=== PATIENT | female | born 2000 ===

== ENCOUNTER 2022-07-30 01:02 | Inpatient (IN) | payer BC ==
[2022-07-30] MEDS ORDERED: Lidocaine 1% 50 ML MDV INJECT PRN (01:41)
[2022-07-30] MEDS ORDERED: Sodium Chloride 0.9% 10 ML Syringe FLUSH PRN (01:41)
[2022-07-30] MEDS ORDERED: Misoprostol 200 MCG Tab PO PRN (01:41)
[2022-07-30] MEDS ORDERED: Ondansetron 4 MG/2 ML SDV IVPUSH PRN (01:41)
[2022-07-30] MEDS ORDERED: Methylergonovine 0.2 MG/1 ML Amp IM PRN (01:41)
[2022-07-30] MEDS ORDERED: Carboprost Tromethamine 250 MCG/1 mL Vial IM PRN (01:41)
[2022-07-30] MEDS ORDERED: Butorphanol 1 MG/ML SDV IVPUSH PRN (01:41)
[2022-07-30] MEDS ORDERED: Sodium Chloride 0.9% 20 ML SDV IV PRN (01:41)
[2022-07-30] MEDS ORDERED: Sodium Chloride 0.9% 2.5 ML Syringe FLUSH PRN (01:41)
[2022-07-30] MEDS ORDERED: Tranexamic Acid 1,000 MG in Sodium Chloride 0.9% 100 ML IV PRN (01:41)
[2022-07-30] MEDS ORDERED: Water For Irrigation,Sterile 1,000 ML Container IRR PRN (01:41)
[2022-07-30] MEDS ORDERED: Oxytocin/0.9 % Sodium Chloride 30 UNIT/500 ML BAG IV SCH ×2 (01:45→08:15)
[2022-07-30] MEDS: Lactated Ringers 1,000 ML IV SCH ×3 (01:45→06:00)
[2022-07-30 02:00] LABS: HEMATOCRIT 38.9 % (36.0-46.0); HEMOGLOBIN 13.4 g/dL (12.0-16.0); MEAN CORPUSCULAR HEMOGLOBIN 30.4 pg (27.0-32.0); MEAN CORPUSCULAR HGB CONC 34.4 g/dL (31.0-37.0); MEAN CORPUSCULAR VOLUME 88.2 fL (80.0-98.0); MEAN PLATELET VOLUME 12.2 fL (7.40-12.00); RED BLOOD CELL COUNT 4.41 M/uL (4.30-5.90); WHITE BLOOD CELL COUNT,WBC 13.26 K/uL (4.0-11.0)
[2022-07-30] MEDS ORDERED: Ropivacaine/PF 400 MG/200 ML PCA ONE (03:10)
[2022-07-30] MEDS ORDERED: Dexmedetomidine 200 MCG/2 ML SDV ONE (03:10)
[2022-07-30] MEDS ORDERED: ePHEDrine 50 MG/ML SDV IVPUSH PRN ×2 (03:27)
[2022-07-30] MEDS ORDERED: Ropivacaine HCl/PF 400 MG in Premix Bag 1 BAG EPIDUR SCH (03:30)
[2022-07-30] MEDS: Phenylephrine HCl 0.5 MG/5 ML AMP IVPUSH PRN ×2 (05:08→07:15)
[2022-07-30] MEDS ORDERED: Witch Hazel Medicated Pads 40/Jar TOP PRN (12:22)
[2022-07-30] MEDS ORDERED: Bisacodyl 10 MG Supp RECTAL PRN (12:22)
[2022-07-30] MEDS ORDERED: Lanolin 100% Cream 7 GM Tube TOP PRN (12:22)
[2022-07-30] MEDS ORDERED: oxyCODONE 5 MG Tab PO PRN (12:22)
[2022-07-30] MEDS ORDERED: Benzocaine/Menthol 20%-0.5% Spray 78 GM Cannister TOP PRN (12:22)
[2022-07-30] MEDS ORDERED: Ibuprofen 400 MG Tab PO PRN (12:22)
[2022-07-30] MEDS ORDERED: Acetaminophen 500 MG Tab PO PRN (12:22)
[2022-07-30 12:29] LABS: PH,UMBILICAL ARTERIAL 7.197 (7.18-7.38); PH,UMBILICAL VENOUS 7.314 (7.25-7.45)
[2022-07-30] MEDS: Docusate Sodium 100 MG Cap PO PRN (13:47)
[2022-07-30] MEDS: Acetaminophen 500 MG Tab PO PRN ×2 (13:48→20:04)
[2022-07-30] MEDS: Ibuprofen 800 MG Tab PO PRN (13:48)
[2022-07-31] MEDS: Docusate Sodium 100 MG Cap PO PRN (01:26)
[2022-07-31] MEDS: Ibuprofen 800 MG Tab PO PRN ×2 (01:26→09:06)
[2022-07-31 06:31] LABS: HEMATOCRIT 29.9 % (36.0-46.0); HEMOGLOBIN 9.9 g/dL (12.0-16.0)
== END 2022-07-31 14:22 | disposition home or self-care (01) | DRG 560 ==
LOC: MW.OB 01:02 → MW.OBCHECK 01:02 → MW.OB 01:42 → OBSVTOIN 11:49 → MW.MS 13:23 → MW.OB 13:25
PROVIDERS: ADMIT Obstetrics & Gynecology; ATTEND Obstetrics & Gynecology
PROC: 10E0XZZ Delivery of Products of Conception, External Approach (ICD-10-PCS; principal; 2022-07-30)
PROC: 0UQMXZZ Repair Vulva, External Approach (ICD-10-PCS; 2022-07-30)
PROC: 3E0R3BZ Introduction of Anesthetic Agent into Spinal Canal, Percutaneous Approach (ICD-10-PCS; 2022-07-30)
PROC: 00HU33Z Insertion of Infusion Device into Spinal Canal, Percutaneous Approach (ICD-10-PCS; 2022-07-30)
DX: O42.02 Full-term premature rupture of membranes, onset of labor within 24 hours of rupture (principal); O48.0 Post-term pregnancy; O70.0 First degree perineal laceration during delivery; Z37.0 Single live birth; Z3A.40 40 weeks gestation of pregnancy
CPT/HCPCS: 01967; 36415; 51702; 59025; 59409; 82803; 85014; 85018; 85027; 86592; 86850; 86900; 86901; A9270-GY; J2370; J2405; J2590; J2795; J3490; J7120